=== PATIENT | female | born 1960 | race Caucasian/White ===

== ENCOUNTER 2019-02-20 15:15 | Observation (INO) | payer BC ==
[2019-02-20 15:30] VITALS: BMI 51.2
[2019-02-20] MEDS ORDERED: ALPRAZolam 0.25 MG TABLET PO ONE (16:15)
--- NOTE | 2019-02-20 16:15 | PDOC ---
Documentation entered by Michael Baez SCRIBE, acting as scribe for Jory Cisneros MD. Jory Cisneros MD: This documentation has been prepared by the Nestor spain Xhesika, SCRIBE, under my direction and personally reviewed by me in its entirety. I confirm that the documentation accurately reflects all work, treatment, procedures, and medical decision making performed by me. History of Present Illness - General Chief Complaint: Palpitations Stated Complaint: PALPITAIONS Time Seen by Provider: 02/20/19 15:25 History Source: Patient Exam Limitations: No Limitations - History of Present Illness Initial Comments: 02/20/19 16:05 The patient is a 58 year old female with a significant past medical history of hypothyroidism who presents to the ED with 2 weeks of palpitations. Patient notes her symptoms occur intermittently/ periodically, described as a tense feeling or a fluttering sensation, associated with a "foggy" headache, lasting for roughly 10 minutes (last episode was 2 hrs ago). Patient notes she is going through family stresses, her sister was recently diagnosed with cancer and she endorses these symptoms only when she visits her ill sister who was recently hospitalized.. Patient denies taking any pain medication. Patient notes she saw her PCP in August and her results/ EKG were unremarkable. Denies fever, chills, Pt denies any recent weight loss/weight gain. Denies vision changes/ hearing changes, chest pain, SOB, dizziness, weakness, N, V, abdominal pain, bladder and bowel problems, leg tingling/swelling. Allergies: None Past Medical History: as documented in EMR/HPI Social history: No tobacco. Social drinker Surgical history: hysterectomy, tonsillectomy Meds: as documented in EMR Family history: noncontributory PMD: Dr. Jaimee Woo 02/20/19 16:12 Past History - Past Medical History Allergies/Adverse Reactions: Allergies Allergy/AdvReac Type Severity Reaction Status Date / Time No Known Allergies Allergy Verified 02/20/19 15:18 Home Medications: Ambulatory Orders Levothyroxine [Synthroid] 100 mcg PO DAILY 04/05/12 COPD: No Thyroid Disease: Yes (HYPOTHYROIDISM) - Suicide/Smoking/Psychosocial Hx Smoking Status: No Smoking History: Never smoked Have you smoked in the past 12 months: No Number of Cigarettes Smoked Daily: 0 Information on smoking cessation initiated: No Hx Alcohol Use: No Drug/Substance Use Hx: No Review of Systems - Review of Systems Able to Perform ROS?: Yes Comments:: 02/20/19 16:06 Constitutional: no fevers or chills. No weakness HEENT: (+) headache. +dizziness. No congestion. No visual/hearing disturbances. CVS: no cp or syncope. No edema. (+) palpitations Resp: no sob. No cough. Gastrointestinal: no abdominal pain, nausea or vomiting. Genitourinary: no urinary sx, hematuria. MUSCULOSKELETAL: No joint pain and swelling. No neck or back pain. SKIN: no redness or skin changes, no discharge, no rash. No wounds. Hematologic: no easy bruising/bleeding. NEUROLOGIC: No headache, dizziness, LOC or altered mental status. No weakness, numbness or tingling. Psych: no anxiety or depression Allergic/Immunologic: no allergies All other systems reviewed and negative, or as documented in HPI. 02/20/19 16:13 *Physical Exam - Vital Signs Last Vital Signs Temp Pulse Resp BP Pulse Ox 98.6 F 71 20 143/99 100 02/20/19 15:17 02/20/19 17:56 02/20/19 17:56 02/20/19 17:56 02/20/19 17:56 - Physical Exam Comments: 02/20/19 16:06 General: awake and alert, mildly anxious. HEENT: NCAT, PERRL, EOMI, clear conjunctiva, anicteric, moist mucus membranes, clear oropharynx, no oral lesions.. Neck: neck supple, FROM Resp: CTAB, normal and even respirations, no respiratory distress CVS: RRR, no murmurs, 2+ peripheral pulses throughout, no peripheral edema Abdomen: soft, NTND, no rebound or guarding. No CVAT. Back: nontender, normal inspection and ROM MSK: no edema, SIMPSON x4, ROM intact. No clubbing or cyanosis. normal bulk and tone. Extremities: no calf tenderness Neuro: alert, oriented appropriately; no focal neurologic deficits Psych: cooperative, +anxious, +tearful Skin: warm and well perfused, cap refill <2 sec, normal color 02/20/19 16:14 Heart Score/ECG Review - History History: Slightly suspicious - Electrocardiogram EKG: Normal - Age Age: 45-65 - Risk Factors Risk Factors Heart Score: Yes Hx Obesity Based on the list above the patient has:: 1-2 risk factors - Troponin Troponin: </= normal limit - Score Heart Score - Total: 2 #1 ECG reviewed & interpreted by me at: 15:50 General ECG Interpretation: Sinus Rhythm, Normal Rate, Normal Intervals Compared to previous ECG there are: No significant change 02/20/19 16:18 EKG normal sinus rhythm at 66 bpm, no interval abnormalities, narrow QRS, ST and T wave segments and morphology normal. Nonspecific T wave abnormalities with TWI in III only - infrequent PAC #2 ECG reviewed & interpreted by me at: 17:55 General ECG Interpretation: Sinus Rhythm, Normal Rate, Normal Intervals Compared to previous ECG there are: No significant change ED Treatment Course - LABORATORY CBC & Chemistry Diagram: 02/20/19 16:35 02/20/19 16:35 - ADDITIONAL ORDERS Additional order review: Laboratory Results 02/20/19 02/20/19 02/20/19 16:35 16:35 16:35 Sodium 139 Potassium 4.4 Chloride 105 Carbon Dioxide 26 Anion Gap 8 BUN 16.0 Creatinine 0.6 Est GFR (CKD-EPI)AfAm 117.27 Est GFR (CKD-EPI)NonAf 101.18 Random Glucose 95 Calcium 9.4 Magnesium 1.8 Total Bilirubin 0.8 AST 17 ALT 15 Alkaline Phosphatase 50 Creatine Kinase 47 Troponin I < 0.03 Total Protein 7.1 Albumin 4.1 TSH 2.92 02/20/19 16:35 RBC 4.30 MCV 91.4 MCHC 33.8 RDW 13.4 MPV 8.4 Neutrophils % 76.6 Lymphocytes % 11.7 Monocytes % 8.9 Eosinophils % 2.0 Basophils % 0.8 - RADIOLOGY Radiology Studies Ordered: Category Date Time Status CHEST X-RAY PORTABLE* [RAD] Stat Radiology 02/20/19 17:31 Completed - Medications Given in the ED: ED Medications Discontinued Medications Generic Name Dose Route Start Last Admin Trade Name Freq PRN Reason Stop Dose Admin Alprazolam 0.5 mg 02/20/19 16:15 02/20/19 17:07 Xanax - PO 02/20/19 16:16 0.5 mg ONCE ONE Administration Medical Decision Making - Medical Decision Making 02/20/19 16:14 See HPI for details. Prior notes reviewed, including admissions, discharges and consultations. Vital signs reviewed, wnl. Vital Signs Temp Pulse Resp BP Pulse Ox 98.6 F 69 20 158/86 99 02/20/19 15:17 02/20/19 15:17 02/20/19 15:17 02/20/19 15:17 02/20/19 15:17 DDx chest pain: ACS, coronary vasospasm, NSTEMI, arrhythmia, unstable angina, PE , dissection, PUD, esophageal spasm, GERD, gastritis, costochondritis, pneumonia , pleurisy, pericarditis/myocarditis. dehydration, electrolyte/metabolic derangements. hyperthyroid state. reentrant tachycardia, dysrhythmia. doubt infection, no respiratory or cardiac sx currently. laboratory results and imaging reviewed, basic labs and lytes wnl, TSH unremarkable Cardiac panel_negative, so doubt ACS. more concern for arrhythmia EKG normal sinus rhythm at 66 bpm, no interval abnormalities, narrow QRS, ST and T wave segments and morphology normal. Nonspecific T wave abnormalities with TWI in III only - infrequent PAC similar to prior EKG ED course -interventions: xanax, reassess. 02/20/19 17:28 - while in the ED, had periods of palpitations. tele monitor noticed periods of sinus tachycardia, sinus rhythm with P waves seen, no depressions or elevations, rate up to 150-160s, regular rhythm, no AF/Afib episodes or irregularities. self resolves in <5 seconds, <10 beats. then self resolves to NSR 60-80s no QRS widening to suggest NSVT. no cp or sob. no acute distress during episodes. repeated EKG with sinus rhythm at 70 bpm, no elevations or depressions of ST segments. PAC appearance as before. now with periods of tachycardia, send off for d dimer screening, coags, check for possibility of PE concern for arrhythmia vs reentrant tachycardia cards cs with Dr Simmons mental health consultant admit to telemetry for further monitoring, medical management. s/o MIRACLE Jack with case. 02/20/19 17:47 02/20/19 17:51 02/20/19 18:35 02/20/19 18:37 *DC/Admit/Observation/Transfer Diagnosis at time of Disposition: Palpitations - Discharge Dispostion Condition at time of disposition: Guarded Decision to Admit order: Yes Decision to Admit order Date/Time: Decision to Admit Order Category Date Time Status Decision to Admit to Hospital Routine Admission 02/20/19 17:50 Active Decision to Admit to Hospital Routine Admission 02/20/19 18:21 Active - Referrals - Patient Instructions - Post Discharge Activity
[2019-02-20] MEDS ORDERED: ALPRAZolam 0.25 MG TABLET ONE (17:00)
[2019-02-20 17:02] LABS: BASO % 0.8 % (0-2.0); HEMATOCRIT 39.3 % (32.4-45.2); HEMOGLOBIN 13.3 GM/dl (10.7-15.3); LYMPH % 11.7 % (8-40); MCH 30.9 pg (25.7-33.7); MCHC 33.8 g/dl (32.0-36.0); MEAN CELL VOLUME 91.4 fl (80-96); MEAN PLT VOLUME 8.4 fl (7.5-11.1); MONO % 8.9 % (3.8-10.2); NEUT % 76.6 % (42.8-82.8); PLATELET COUNT 249 K/MM3 (134-434); RDW 13.4 % (11.6-15.6); WHITE BLOOD COUNT 4.3 K/mm3 (4.0-10.8)
[2019-02-20 17:05] LABS: ALBUMIN 4.1 g/dl (3.4-5.0); BILIRUBIN,TOTAL 0.8 mg/dl (0.2-1); CALCIUM 9.4 mg/dl (8.5-10); CREATININE 0.6 mg/dl (0.55-1.3); MAGNESIUM 1.8 mg/dL (1.8-2.4); POTASSIUM 4.4 mmol/L (3.5-5.1); TOT PROT 7.1 g/dl (6.4-8.2)
--- NOTE | 2019-02-20 18:07 | HP ---
CHIEF COMPLAINT: Palpitations x 2 weeks PCP: Olivia Villanueva HISTORY OF PRESENT ILLNESS The patient is a 58 year-old female with a PMH significant for hypothyroidism and sarcoidosis. Presented to the ED today for evaluation of palpitations. Patient began experiencing palpitations about 2 weeks ago. She describes them as a fluttering sensation, sometimes accompanied by a feeling of being flushed and hot, although she denies diaphoresis or clamminess. Patient denies dizziness , lightheadedness, headache, chest pain, SOB, HENDRICKSON, orthopnea, and lower extremity edema. The onset of the palpitations coincided with her sister being diagnosed with multiple myeloma. Patient lost another sister and a brother to cancer, and her mother is 95 with advanced dementia. All of this placing patient under severe emotional distress. Patient has an annual ECG, had an echo a few years ago which was unremarkable, and has never had a stress test. ER course was notable for: (1) HR 59-->178 on monitor, symptomatic (2) Mg 1.8 (3) troponin neg x 1 (4) alprazolam 0.5mg x 1 Recent Travel: No PAST MEDICAL HISTORY: Hypothyroidism Sarcoidosis PAST SURGICAL HISTORY: Left popliteal cyst I&D [place] Social History: Smoking: former Alcohol: occasional Drugs: no Family history: sister 60 with multiple myleloma; brother cancer; sister cancer; mother 95 with Alzheimers Allergies No Known Allergies Allergy (Verified 02/20/19 15:18) HOME MEDICATIONS: Home Medications Medication Instructions Recorded Levothyroxine [Synthroid] 100 mcg PO DAILY 04/05/12 REVIEW OF SYSTEMS CONSTITUTIONAL: Absent: fever, chills, diaphoresis, generalized weakness, malaise, loss of appetite, weight change HEENT: Absent: rhinorrhea, nasal congestion, throat pain, throat swelling, difficulty swallowing, mouth swelling, ear pain, eye pain, visual changes CARDIOVASCULAR: +palpitations Absent: chest pain, syncope, irregular heart rate, lightheadedness, peripheral edema RESPIRATORY: Absent: cough, shortness of breath, dyspnea with exertion, orthopnea, wheezing, stridor, hemoptysis GASTROINTESTINAL: Absent: abdominal pain, abdominal distension, nausea, vomiting, diarrhea, constipation, melena, hematochezia GENITOURINARY: Absent: dysuria, frequency, urgency, hesitancy, hematuria, flank pain, genital pain MUSCULOSKELETAL: Absent: myalgia, arthralgia, joint swelling, back pain, neck pain SKIN: Absent: rash, itching, pallor HEMATOLOGIC/IMMUNOLOGIC: Absent: easy bleeding, easy bruising, lymphadenopathy, frequent infections ENDOCRINE: Absent: unexplained weight gain, unexplained weight loss, heat intolerance, cold intolerance NEUROLOGIC: Absent: headache, focal weakness or paresthesias, dizziness, unsteady gait, seizure, mental status changes, bladder or bowel incontinence PSYCHIATRIC: ++anxiety Absent: depression, suicidal or homicidal ideation, hallucinations. PHYSICAL EXAMINATION Vital Signs - 24 hr 02/20/19 15:17 Temperature 98.6 F Pulse Rate 69 Respiratory 20 Rate Blood Pressure 158/86 O2 Sat by Pulse 99 Oximetry (%) GENERAL: Awake, alert, and fully oriented, in moderate stress due to anxiety LUNGS: Breath sounds equal, clear to auscultation bilaterally. No wheezes, and no crackles. No accessory muscle use. HEART: Regular rate and rhythm, S1 and S2 ABDOMEN: Soft, nontender, not distended MUSCULOSKELETAL: Normal range of motion at all joints. No bony deformities or tenderness. No CVA tenderness. UPPER EXTREMITIES: 2+ pulses, warm, well-perfused. No cyanosis. No clubbing. No peripheral edema. LOWER EXTREMITIES: 2+ pulses, warm, well-perfused. No calf tenderness. No peripheral edema. NEUROLOGICAL: Cranial nerves II-XII intact. Normal speech. Laboratory Results - last 24 hr 02/20/19 02/20/19 02/20/19 16:35 16:35 16:35 WBC 4.3 RBC 4.30 Hgb 13.3 Hct 39.3 MCV 91.4 MCH 30.9 MCHC 33.8 RDW 13.4 Plt Count 249 MPV 8.4 Absolute Neuts (auto) 3.3 Neutrophils % 76.6 Lymphocytes % 11.7 Monocytes % 8.9 Eosinophils % 2.0 Basophils % 0.8 Sodium 139 Potassium 4.4 Chloride 105 Carbon Dioxide 26 Anion Gap 8 BUN 16.0 Creatinine 0.6 Est GFR (CKD-EPI)AfAm 117.27 Est GFR (CKD-EPI)NonAf 101.18 Random Glucose 95 Calcium 9.4 Magnesium 1.8 Total Bilirubin 0.8 AST 17 ALT 15 Alkaline Phosphatase 50 Creatine Kinase Troponin I < 0.03 Total Protein 7.1 Albumin 4.1 02/20/19 16:35 WBC RBC Hgb Hct MCV MCH MCHC RDW Plt Count MPV Absolute Neuts (auto) Neutrophils % Lymphocytes % Monocytes % Eosinophils % Basophils % Sodium Potassium Chloride Carbon Dioxide Anion Gap BUN Creatinine Est GFR (CKD-EPI)AfAm Est GFR (CKD-EPI)NonAf Random Glucose Calcium Magnesium Total Bilirubin AST ALT Alkaline Phosphatase Creatine Kinase 47 Troponin I Total Protein Albumin ASSESSMENT/PLAN 58 year-old female with a PMH significant for hypothyroidism and sarcoidosis. Placed on observation for palpitations. Paroxysmal atrial tachycardia --in sinus rhythm with frequent HR to 150s-->170s; over a 20- minute period with patient, each time the HR spiked, she experienced palpitations; BP remains stable --TSH, free T4 wnl --troponin neg x 1, two pending --d-dimer negative --discussed with Dr. Simmons, start metoprolol 25 mg BID --ASA 325mg x 1 --Ativan IVP 1mg x 1 --Mg IV 2mg x 1 --telemetry monitoring --serial ECGs --echo in am --cardiology to follow Hypothyroidism --continue levothyroxine Sarcoid --lung involvement, diagnosed years ago --stable, not on meds Anxiety --situational to family illnesses --consider starting anti-anxiolytics FEN Fluids: PO intake adequate Electrolytes: replete as indicated Nutrition: regular diet DVT prophylaxis: subq lovenox Dispo: transfer to [facility] telemetry unit. Full code. Visit type - Emergency Visit Emergency Visit: Yes Care time: The patient presented to the Emergency Department on the above date and was hospitalized for further evaluation of their emergent condition. - New Patient This patient is new to me today: Yes Date on this admission: 02/20/19 - Critical Care Critical Care patient: No
[2019-02-20] MEDS ORDERED: MAGNESIUM SULF 50% (8.12 MEQ/2 ML-1 GM VIAL) IVPB ONE (18:21)
[2019-02-20 18:39] LABS: INR 1.16 (0.82-1.09); PROTHROMBIN TIME (PATIENT) 12.9 SEC (10.2-13.0)
[2019-02-20] MEDS ORDERED: METOPROLOL TARTRATE 25 MG TABLET (FP) PO ONE (19:10)
[2019-02-20] MEDS ORDERED: METOPROLOL TARTRATE 50 MG TABLET (FP) ONE ×2 (19:40→20:06)
[2019-02-20] MEDS ORDERED: METOPROLOL TARTRATE 50 MG TABLET (FP) PO STA (20:00)
[2019-02-20] MEDS ORDERED: LORazepam 2 MG/ML SDV VIAL IVPUSH ONE (20:00)
[2019-02-20] MEDS ORDERED: ASPIRIN 81 MG CHEWABLE TABLETS PO ONE (20:02)
[2019-02-20] MEDS ORDERED: ENOXAPARIN NA (PORCINE) 60 MG/0.6 ML DISP.SYRIN SQ ONE (20:06)
[2019-02-20] MEDS ORDERED: LORazepam 2 MG/ML SDV VIAL ONE (20:06)
[2019-02-20] MEDS ORDERED: MAGNESIUM 1GM/D5W - 2 GM/200 ML IVPB IVPB ONE (20:07)
[2019-02-20] MEDS: ENOXAPARIN NA (PORCINE) 40 MG/0.4 ML DISP.SYRIN SQ SCH (20:28)
[2019-02-21] MEDS ORDERED: LEVOTHYROXINE NA 100 MCG TABLET (FP) PO SCH (06:00)
--- NOTE | 2019-02-21 06:53 | PN ---
Progress Note (short form) - Note Progress Note: Chief Complaint: Events noted, notes reviewed, palpitations described as rapid heartbeat with associated "lightheadedness/fogginess", denied any chest discomfort, denied any dyspnea History of Present Illness: Seen and examined on telemetry. Full consult dictated Monitor revealed recurrent paroxysmal supraventricular tachycardia, cannot exclude paroxysmal atrial flutter Medications: Current Medications Aspirin (Ecotrin -) 81 mg PO DAILY [facility] Enoxaparin Sodium (Lovenox -) 40 mg SQ DAILY [facility] Last Admin: 02/20/19 20:28 Dose: 40 mg Levothyroxine Sodium (Synthroid -) 100 mcg PO DAILY@0600 [facility] Last Admin: 02/21/19 06:45 Dose: 100 mcg Metoprolol Tartrate (Lopressor -) 25 mg PO BID [facility] Review of Systems - Review of Systems Constitutional: no symptoms reported Respiratory: denies: Cough or Sputum Production Cardiovascular: as noted above Gastrointestinal: denies: Nausea, Vomiting, Diarrhea, Constipation or Abdominal Pain Genitourinary: no symptoms reported Musculoskeletal: no symptoms reported Endocrine: Hypothyroidism Vital Signs: Last Vital Signs Temp Pulse Resp BP Pulse Ox 98.2 F 48 L 18 141/61 100 02/21/19 06:11 02/21/19 06:11 02/21/19 06:11 02/21/19 06:11 02/20/19 20:40 Intake & Output 02/18/19 02/19/19 02/20/19 02/21/19 23:59 23:59 23:59 23:59 Intake Total 200 Balance 200 Weight 280 lb Constitutional: No Distress, Calm Neck: Supple Negative JVD No Bruit Respiratory: Clear to auscultation percussion Cardiovascular: S1 S2 Regular Rate and Rhythm Garde 2/6 NASIR Gastrointestinal: Soft Benign Normal Bowel Sounds Ext: No Edema Labs: Troponin, BNP 02/20/19 02/21/19 16:35 05:57 Troponin I < 0.03 < 0.02 CBC, BMP 02/21/19 05:57 02/21/19 05:57 Hepatic Panel Total Bilirubin 0.7 mg/dL (0.2-1) 02/21/19 05:57 AST 14 U/L (15-37) L 02/21/19 05:57 ALT 19 U/L (13-61) 02/21/19 05:57 Alkaline Phosphatase 54 U/L (45-117) 02/21/19 05:57 Albumin 3.6 g/dl (3.4-5.0) 02/21/19 05:57 INR, PTT INR 1.09 (0.83-1.09) 02/21/19 05:57 Assessment/Plan ASSESSMENT: 1. Palpitations referable to paroxysmal supraventricular tachycardia (as noted on monitor), nonsustained cannot exclude paroxysmal atrial flutter 2. Structural heart disease to be excluded considering the above-noted presentation and history of pulmonary sarcoidosis, exclude myocardial sarcoidosis 3. Heart murmur most likely related to aortic valve sclerosis with no clinical evidence of aortic valve stenosis 4. Pulmonary sarcoidosis- not biopsy proven 5. Hypothyroidism 6. Morbid obesity PLAN: 1. Continue Lopressor therapy and further dose titration as needed, hemodynamics permitting 2. Continue daily Ecotrin therapy 3. Echocardiography for evaluation of left ventricular systolic function and the above-noted heart murmur 4. Patient was strongly counseled dietary compliance including caloric restriction, increase ambulation as tolerated and weight reduction 5. Additional cardiovascular evaluation to be performed on outpatient basis including myocardial perfusion imaging study and cardiac MRI to exclude myocardial sarcoidosis, discussed in detail with patient and advised office followup 6. Provided patient is ambulating without any recurrent sustained arrhythmia patient can be discharged home later today Gina Perez M.D.
[2019-02-21 08:37] LABS: ALBUMIN 3.6 g/dl (3.4-5.0); ALK PHOS 54 U/L (45-117); ANION GAP 7 MMOL/L (8-16); BILIRUBIN,TOTAL 0.7 mg/dL (0.2-1); BLOOD UREA NITROGEN 14.3 mg/dL (7-18); CALCIUM 8.9 mg/dL (8.5-10.1); CHLORIDE 106 mmol/L (98-107); CO2 29 mmol/L (21-32); CREATININE 0.5 mg/dL (0.55-1.3); GLUCOSE,RANDOM 79 mg/dL (74-106); MAGNESIUM 2.4 mg/dL (1.8-2.4); POTASSIUM 4.1 mmol/L (3.5-5.1); SGOT/AST 14 U/L (15-37); SGPT/ALT 19 U/L (13-61); SODIUM 141 mmol/L (136-145); TOT PROT 6.7 g/dl (6.4-8.2)
[2019-02-21 08:41] LABS: ACTIVATED PTT 33.9 SECONDS (25.2-36.5); INR 1.09 (0.83-1.09); PROTHROMBIN TIME (PATIENT) 12.9 SEC (9.7-13.0)
[2019-02-21 08:55] LABS: BASO % 1.1 % (0-2.0); EOS % 3.8 % (0-4.5); HEMATOCRIT 37.5 % (32.4-45.2); HEMOGLOBIN 12.7 GM/dL (10.7-15.3); LYMPH % 23.9 % (8-40); MCH 30.5 pg (25.7-33.7); MCHC 33.8 g/dl (32.0-36.0); MEAN CELL VOLUME 90.4 fl (80-96); MEAN PLT VOLUME 8.3 fl (7.5-11.1); MONO % 11.7 % (3.8-10.2); NEUT % 59.5 % (42.8-82.8); PLATELET COUNT 225 K/MM3 (134-434); RBC 4.14 M/mm3 (3.60-5.2); RDW 14.6 % (11.6-15.6)
[2019-02-21] MEDS ORDERED: METOPROLOL TARTRATE 25 MG TABLET (FP) PO SCH (10:00)
[2019-02-21] MEDS ORDERED: ASPIRIN COATED 81 MG TABLET.EC PO SCH (10:00)
[2019-02-21] MEDS: ENOXAPARIN NA (PORCINE) 40 MG/0.4 ML DISP.SYRIN SQ SCH (10:48)
--- NOTE | 2019-02-21 10:54 | ECHO ---
Version: 1 Name: VANGIE MERAZ Exam: Adult Echocardiogram Study Date: 02/21/2019, 8:43 AM Age: 58 Years MMode/2D Measurements & Calculations IVSd: 0.91 cm LVIDs: 3.4 cm LVIDd: 4.7 cm LVPWd: 0.85 cm LVOT diam: 2.01 cm Ao root diam: 2.6 cm LA dimension: 3.2 cm Doppler Measurements & Calculations MV E max dalton: 83.9 cm/sec Med E/e': 8.8 MV A max dalton: 97.6 cm/sec Med Peak E' Dalton: 9.5 cm/sec MV E/A: 0.86 Lat E/e': 5.5 Lat Peak E' Dalton: 15.2 cm/sec Ao max P.8 mmHg MAYE(I,D): 1.53 cm Ao mean P.9 mmHg LV V1 mean: 61.9 cm/sec Ao V2 max: 211.1 cm/sec LV V1 mean P.70 mmHg TR max dalton: 227.1 cm/sec TR max P.7 mmHg Left Ventricle The left ventricular size, thickness and function are normal. Ejection Fraction = 65%. Right Ventricle The right ventricle is normal in size and function. Atria Normal left and right atrial size and function. Mitral Valve There is mild mitral valve thickening. There is trace mitral regurgitation. Tricuspid Valve The tricuspid valve is normal. There is trace tricuspid regurgitation. Aortic Valve There is mild aortic valve thickening. Pulmonic Valve The pulmonic valve is not well visualized. Great Vessels The aortic root is normal size. Normal aortic arch, descending and ascending aorta. Pericardium/Pleura There is no pericardial effusion. Summary Statements The left ventricular size, thickness and function are normal Ejection Fraction = 65%. The right ventricle is normal in size and function. Normal left and right atrial size and function. There is mild mitral valve thickening. There is trace mitral regurgitation. The tricuspid valve is normal. There is trace tricuspid regurgitation. There is mild aortic valve thickening. The pulmonic valve is not well visualized. The aortic root is normal size. Normal aortic arch, descending and ascending aorta There is no pericardial effusion. Joselito Niremberg 02/21/2019, 9:54 AM Ordering Physician: Sunitha Jack Referring Physician: MAIA MARTINEZ Performed By: Shakira Ford
--- NOTE | 2019-02-21 11:01 | EKG ---
Test Reason : Blood Pressure : / mmHG Vent. Rate : 066 BPM Atrial Rate : 066 BPM P-R Int : 188 ms QRS Dur : 114 ms QT Int : 386 ms P-R-T Axes : 051 039 008 degrees QTc Int : 404 ms SINUS RHYTHM WITH PREMATURE ATRIAL COMPLEXES WITH ABERRANT CONDUCTION OTHERWISE NORMAL ECG NO PREVIOUS ECGS AVAILABLE Confirmed by Stan Vega ([id number]) on 02/21/2019 11:00:38 AM Referred By: Confirmed By:Stan Vega
--- NOTE | 2019-02-21 11:03 | EKG ---
Test Reason : Blood Pressure : / mmHG Vent. Rate : 070 BPM Atrial Rate : 070 BPM P-R Int : 194 ms QRS Dur : 108 ms QT Int : 398 ms P-R-T Axes : 052 018 003 degrees QTc Int : 429 ms SINUS RHYTHM WITH PREMATURE ATRIAL COMPLEXES WITH ABERRANT CONDUCTION T WAVE ABNORMALITY, CONSIDER INFERIOR ISCHEMIA ABNORMAL ECG WHEN COMPARED WITH ECG OF 20-FEB-2019 15:47, NO SIGNIFICANT CHANGE WAS FOUND Confirmed by Stan Vega ([id number]) on 02/21/2019 11:03:37 AM Referred By: Confirmed By:Stan Vega
[2019-02-21] MEDS ORDERED: CITALOPRAM HYDROBROMIDE 10 MG TABLET (FP) PO SCH (12:00)
--- NOTE | 2019-02-21 13:17 | CONS ---
DATE OF CONSULTATION: 02/21/2019 REQUESTING PHYSICIAN: Hospitalist service. CHIEF COMPLAINT: Palpitations, evaluation of supraventricular tachycardia. 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 Palpations were described as rapid heartbeat. Symptoms worsened on the day of evaluation. Patient reported associated vague lightheadedness described as head fogginess. Patient denied any near syncope or syncope. Patient reports dyspnea with moderate physical exertion, which she attributes to the above-noted pulmonary sarcoidosis. Patient denies any orthopnea, paroxysmal or nocturnal dyspnea, or peripheral edema. Patient denies any chest discomfort. Patient denies any fatigue or tiredness. Patient has been reporting significant emotional stress related to personal issues. PAST MEDICAL HISTORY: Pulmonary sarcoidosis not biopsy proven, hypothyroidism. PAST SURGICAL HISTORY: Hysterectomy. SOCIAL HISTORY: Remote history of tobacco abuse. FAMILY HISTORY: Positive for coronary artery disease. ALLERGIES: None reported. MEDICAL THERAPY: Currently includes Ecotrin 81 mg once a day, Lovenox 40 mg subcutaneously once a day, Synthroid 100 mcg once a day, Lopressor 25 mg twice a day. REVIEW OF SYSTEMS: Head and Neck: Denies headache, photophobia, blurring of vision. Respiratory: No cough or sputum production. Cardiovascular: As noted above. Gastrointestinal: Denies nausea, vomiting, diarrhea, abdominal discomfort. Genitourinary: No symptoms reported. Musculoskeletal: No symptoms reported. Endocrine: History of hypothyroidism. PHYSICAL EXAMINATION: Vital Signs: Blood pressure is 141/61 mmHg, pulse rate is 48 beats per minute, temperature 98.2, weight 280 pounds. Head and Neck: Pupils equal and reactive to light and accommodation. Extraocular muscles are intact. Anicteric sclerae. Negative JVD. No bruits appreciated. Chest: Clear to auscultation and percussion. Cardiovascular: S1, S2 regular. Grade 2/6 systolic ejection murmur. No clicks or gallops. Abdomen: Soft, benign. Normoactive bowel sounds. Extremities: Negative edema. Intact distal pulses. No calf tenderness. Electrocardiogram reveals sinus rhythm with nonspecific T-wave abnormality. CPK, troponin I levels were noted. CBC revealed white cell count 3.0, hemoglobin 12.7, platelet count 225. Basic metabolic profile revealed sodium 141, potassium 4.1, BUN 14.3, creatinine 0.5, glucose 79 with normal liver profile. Monitor revealed evidence of nonsustained supraventricular tachycardia. Cannot exclude paroxysmal atrial flutter. ASSESSMENT: 1. Palpitations referable to paroxysmal supraventricular tachycardia, nonsustained. Cannot exclude paroxysmal atrial flutter. 2. Structural heart disease to be excluded considering the above-noted presentation and history of pulmonary sarcoidosis. Exclude myocardial sarcoidosis. 3. Heart murmur most likely related to aortic valve sclerosis with no clinical evidence of aortic valve stenosis. 4. History of pulmonary sarcoidosis not biopsy proven. 5. Hypothyroidism. 6. Morbid obesity. RECOMMENDATION: 1. Continuation of Lopressor therapy and further titration of dosage as needed hemodynamics permitting. 2. Continuation of daily Ecotrin therapy. 3. Echocardiography for evaluation of left ventricular systolic function and the above-noted heart murmur. 4. Additional cardiovascular evaluation to be performed on outpatient basis including myocardial perfusion imaging study and cardiac MRI, which is to exclude myocardial sarcoidosis. Above was discussed in detail with the patient and advised office follow up. 5. Patient was strongly counseled dietary compliance including caloric restriction, increase ambulation as tolerated, and weight reduction. 6. Provided patient is ambulating without any recurrent sustained arrhythmia, she can be discharged home later today. Thank you for kind referral. LG HASTINGS M.D. [id number]
--- NOTE | 2019-02-21 15:09 | PN ---
Physical Exam: SUBJECTIVE: Patient seen and examined OBJECTIVE: Vital Signs Period Temp Pulse Resp BP Sys/Amaya Pulse Ox Last 24 Hr 97.9 F-98.6 F 48-71 14-20 138-159/61-99 99-100 GENERAL: The patient is awake, alert, and fully oriented, in no acute distress. HEAD: Normal with no signs of trauma. EYES: PERRL, extraocular movements intact, sclera anicteric, conjunctiva clear. No ptosis. ENT: Ears normal, nares patent, oropharynx clear without exudates, moist mucous membranes. NECK: Trachea midline, full range of motion, supple. LUNGS: Breath sounds equal, clear to auscultation bilaterally, no wheezes, no crackles, no accessory muscle use. HEART: Regular rate and rhythm, S1, S2 without murmur, rub or gallop. ABDOMEN: Soft, nontender, nondistended, normoactive bowel sounds, no guarding, no rebound, no hepatosplenomegaly, no masses. EXTREMITIES: 2+ pulses, warm, well-perfused, no edema. NEUROLOGICAL: Cranial nerves II through XII grossly intact. Normal speech, gait not observed. PSYCH: Normal mood, normal affect. SKIN: Warm, dry, normal turgor, no rashes or lesions noted Laboratory Results - last 24 hr 02/20/19 02/20/19 02/20/19 16:35 16:35 16:35 WBC 4.3 RBC 4.30 Hgb 13.3 Hct 39.3 MCV 91.4 MCH 30.9 MCHC 33.8 RDW 13.4 Plt Count 249 MPV 8.4 Absolute Neuts (auto) 3.3 Neutrophils % 76.6 Lymphocytes % 11.7 Monocytes % 8.9 Eosinophils % 2.0 Basophils % 0.8 Nucleated RBC % PT with INR INR PTT (Actin FS) D-Dimer Sodium 139 Potassium 4.4 Chloride 105 Carbon Dioxide 26 Anion Gap 8 BUN 16.0 Creatinine 0.6 Est GFR (CKD-EPI)AfAm 117.27 Est GFR (CKD-EPI)NonAf 101.18 Random Glucose 95 Calcium 9.4 Magnesium 1.8 Total Bilirubin 0.8 AST 17 ALT 15 Alkaline Phosphatase 50 Creatine Kinase Troponin I < 0.03 Total Protein 7.1 Albumin 4.1 TSH Free T4 02/20/19 02/20/19 02/20/19 16:35 16:35 18:15 WBC RBC Hgb Hct MCV MCH MCHC RDW Plt Count MPV Absolute Neuts (auto) Neutrophils % Lymphocytes % Monocytes % Eosinophils % Basophils % Nucleated RBC % PT with INR INR PTT (Actin FS) D-Dimer < 215 Sodium Potassium Chloride Carbon Dioxide Anion Gap BUN Creatinine Est GFR (CKD-EPI)AfAm Est GFR (CKD-EPI)NonAf Random Glucose Calcium Magnesium Total Bilirubin AST ALT Alkaline Phosphatase Creatine Kinase 47 Troponin I Total Protein Albumin TSH 2.92 Free T4 1.28 Cancelled 02/20/19 02/21/19 02/21/19 18:15 05:57 05:57 WBC 3.0 L RBC 4.14 Hgb 12.7 Hct 37.5 MCV 90.4 MCH 30.5 MCHC 33.8 RDW 14.6 Plt Count 225 MPV 8.3 Absolute Neuts (auto) 1.8 Neutrophils % 59.5 Lymphocytes % 23.9 Monocytes % 11.7 H Eosinophils % 3.8 Basophils % 1.1 Nucleated RBC % 0 PT with INR 12.9 12.90 INR 1.16 1.09 PTT (Actin FS) 33.9 D-Dimer Sodium Potassium Chloride Carbon Dioxide Anion Gap BUN Creatinine Est GFR (CKD-EPI)AfAm Est GFR (CKD-EPI)NonAf Random Glucose Calcium Magnesium Total Bilirubin AST ALT Alkaline Phosphatase Creatine Kinase Troponin I Total Protein Albumin TSH Free T4 02/21/19 05:57 WBC RBC Hgb Hct MCV MCH MCHC RDW Plt Count MPV Absolute Neuts (auto) Neutrophils % Lymphocytes % Monocytes % Eosinophils % Basophils % Nucleated RBC % PT with INR INR PTT (Actin FS) D-Dimer Sodium 141 Potassium 4.1 Chloride 106 Carbon Dioxide 29 Anion Gap 7 L BUN 14.3 Creatinine 0.5 L Est GFR (CKD-EPI)AfAm 124.52 Est GFR (CKD-EPI)NonAf 107.44 Random Glucose 79 Calcium 8.9 Magnesium 2.4 Total Bilirubin 0.7 AST 14 L ALT 19 Alkaline Phosphatase 54 Creatine Kinase Troponin I < 0.02 Total Protein 6.7 Albumin 3.6 TSH Free T4 Active Medications Generic Name Dose Route Start Last Admin Trade Name Freq PRN Reason Stop Dose Admin Aspirin 81 mg 02/21/19 10:00 02/21/19 10:48 Ecotrin - PO 81 mg DAILY RAMON Administration Citalopram Hydrobromide 5 mg 02/21/19 12:00 02/21/19 12:41 Celexa - PO 5 mg DAILY RAMON Administration Enoxaparin Sodium 40 mg 02/20/19 18:45 02/21/19 10:48 Lovenox - SQ 40 mg DAILY RAMON Administration Levothyroxine Sodium 100 mcg 02/21/19 06:00 02/21/19 06:45 Synthroid - PO 100 mcg DAILY@0600 RAMON Administration Metoprolol Tartrate 25 mg 02/21/19 10:00 02/21/19 10:48 Lopressor - PO 25 mg BID RAMON Administration ASSESSMENT/PLAN: Visit type - Emergency Visit Emergency Visit: Yes ED Registration Date: 02/20/19 Care time: The patient presented to the Emergency Department on the above date and was hospitalized for further evaluation of their emergent condition. - New Patient This patient is new to me today: Yes Date on this admission: 02/21/19 - Critical Care Critical Care patient: No - Discharge Referral Referred to [facility] Med P.C.: No ATTENDING PHYSICIAN STATEMENT I saw and evaluated the patient. I reviewed the resident's note and discussed the case with the resident. I agree with the resident's findings and plan as documented. SUBJECTIVE: OBJECTIVE: ASSESSMENT AND PLAN:
[2019-02-21 15:34] VITALS: BP 135/65; PULSE 57; TEMP 98.2
--- NOTE | 2019-02-21 17:17 | PN ---
Teaching Attending Note Name of Resident: Catalina Jackson ATTENDING PHYSICIAN STATEMENT I saw and evaluated the patient. I reviewed the resident's note and discussed the case with the resident. I agree with the resident's findings and plan as documented. SUBJECTIVE: no palpitations last night, or today. no cp or SOB OBJECTIVE: NAD Cv : RRR, nno murmurs are heard Lungs: CTAB ext : No edema ,no erythema abd: obese, soft, NT, ND , NL BS ASSESSMENT AND PLAN: 58 y/o lady with h/o hypothyroidism and sarcoidosis, and lots of life stresses who presented with palpitations 1- Palpitations: likley sinsu tachycardia in setting of emotional stress. TSH NL , EKG with sinus arrhythmias. echo reviewed. - cont BB - cotn ASA - add celexa at 10 mg and dose could be increased as outpt . patietn was instructed not to stop abruptly and that it needs to be tapered over weeks - out pt eval fro arrhythmias, cardiac sarcoidosis, and ischemia 2- Hypothyroidism : cont synthroid dc home
--- NOTE | 2019-02-21 17:20 | DS ---
Physical Exam: SUBJECTIVE: Patient seen and examined OBJECTIVE: Vital Signs Period Temp Pulse Resp BP Sys/Amaya Pulse Ox Last 24 Hr 97.9 F-98.6 F 48-71 14-20 135-159/61-99 99-100 PHYSICAL EXAM GENERAL: The patient is awake, alert, and fully oriented, in no acute distress. HEAD: Normal with no signs of trauma. EYES: PERRL, extraocular movements intact, sclera anicteric, conjunctiva clear. ENT: Ears normal, nares patent, oropharynx clear without exudates, moist mucous membranes. NECK: Trachea midline, full range of motion, supple. LUNGS: Breath sounds equal, clear to auscultation bilaterally, no wheezes, no crackles, no accessory muscle use. HEART: Regular rate and rhythm, S1, S2 without murmur, rub or gallop. ABDOMEN: Soft, nontender, nondistended, normoactive bowel sounds, no guarding, no rebound, no hepatosplenomegaly, no masses. EXTREMITIES: 2+ pulses, warm, well-perfused, no edema. NEUROLOGICAL: Cranial nerves II through XII grossly intact. Normal speech, gait not observed. PSYCH: Normal mood, normal affect. SKIN: Warm, dry, normal turgor, no rashes or lesions noted. LABS Laboratory Results - last 24 hr 02/20/19 02/20/19 02/20/19 16:35 16:35 16:35 WBC RBC Hgb Hct MCV MCH MCHC RDW Plt Count MPV Absolute Neuts (auto) Neutrophils % Lymphocytes % Monocytes % Eosinophils % Basophils % Nucleated RBC % PT with INR INR PTT (Actin FS) D-Dimer Sodium Potassium Chloride Carbon Dioxide Anion Gap BUN Creatinine Est GFR (CKD-EPI)AfAm Est GFR (CKD-EPI)NonAf Random Glucose Calcium Magnesium Total Bilirubin AST ALT Alkaline Phosphatase Creatine Kinase 47 Troponin I < 0.03 Total Protein Albumin TSH 2.92 Free T4 1.28 Cancelled 02/20/19 02/20/19 02/21/19 18:15 18:15 05:57 WBC 3.0 L RBC 4.14 Hgb 12.7 Hct 37.5 MCV 90.4 MCH 30.5 MCHC 33.8 RDW 14.6 Plt Count 225 MPV 8.3 Absolute Neuts (auto) 1.8 Neutrophils % 59.5 Lymphocytes % 23.9 Monocytes % 11.7 H Eosinophils % 3.8 Basophils % 1.1 Nucleated RBC % 0 PT with INR 12.9 INR 1.16 PTT (Actin FS) D-Dimer < 215 Sodium Potassium Chloride Carbon Dioxide Anion Gap BUN Creatinine Est GFR (CKD-EPI)AfAm Est GFR (CKD-EPI)NonAf Random Glucose Calcium Magnesium Total Bilirubin AST ALT Alkaline Phosphatase Creatine Kinase Troponin I Total Protein Albumin TSH Free T4 02/21/19 02/21/19 05:57 05:57 WBC RBC Hgb Hct MCV MCH MCHC RDW Plt Count MPV Absolute Neuts (auto) Neutrophils % Lymphocytes % Monocytes % Eosinophils % Basophils % Nucleated RBC % PT with INR 12.90 INR 1.09 PTT (Actin FS) 33.9 D-Dimer Sodium 141 Potassium 4.1 Chloride 106 Carbon Dioxide 29 Anion Gap 7 L BUN 14.3 Creatinine 0.5 L Est GFR (CKD-EPI)AfAm 124.52 Est GFR (CKD-EPI)NonAf 107.44 Random Glucose 79 Calcium 8.9 Magnesium 2.4 Total Bilirubin 0.7 AST 14 L ALT 19 Alkaline Phosphatase 54 Creatine Kinase Troponin I < 0.02 Total Protein 6.7 Albumin 3.6 TSH Free T4 HOSPITAL COURSE: Date of Admission:02/20/19 Date of Discharge: 02/21/19 Minutes to complete discharge: 40 Discharge Summary Reason For Visit: PALPITATIONS Condition: Improved - Instructions Diet, Activity, Other Instructions: You were in the hospital because you were having heart palpitations , While in the hospital you had cardiac monitoring done which showed that you had some heart beats with a normal rhythm but they were too fast. You were also seen by a senior net developer architect who recommended that you have further evaluation as an outpatient as you have sarcoidosis and it is possible that your palpations can be related. We are sending you home with a prescription for Celexa as it is also possible your symptoms are related to anxiety during a stressful period in your life. Please discuss this medication with your primary care doctor, you may decide to continue, discontinue, or change the dose of this medicine with his help. Please continue your home medications as persebed with the following changes: - ADD Celexa 10mg once per day - add lopressore - add aspirin Please follow up with the following doctors within 1 week of discharge from the hospital - Dr. Ariel Gonzalez, your primary care doctor, to discuss your celexa prescription - Dr. Perez, to follow up with further tests to evaluate the cause of your heart palpitations If you have worsening heart palpitations, shortness of breath, or chest pains, please return to the Emergency Department immediately. Referrals: Ariel Gonzalez MD [Non Staff, Medical] - 1 Week Gina Perez MD [Staff Physician] - 1 Week - Home Medications Comprehensive Discharge Medication List: Ambulatory Orders Levothyroxine [Synthroid -] 100 mcg PO DAILY 04/05/12 Aspirin [ASA -] 81 mg PO DAILY #30 tab.chew 02/21/19 Citalopram Hydrobromide [Celexa -] 10 mg PO DAILY #30 tablet 02/21/19 Metoprolol Tartrate [Lopressor -] 25 mg PO BID #60 tablet 02/21/19 This patient is new to me today: Yes Date on this admission: 02/21/19 Emergency Visit: Yes ED Registration Date: 02/20/19 Care time: The patient presented to the Emergency Department on the above date and was hospitalized for further evaluation of their emergent condition. Critical Care patient: No - Discharge Referral Referred to [facility] Med P.C.: No ATTENDING PHYSICIAN STATEMENT I saw and evaluated the patient. I reviewed the resident's note and discussed the case with the resident. I agree with the resident's findings and plan as documented. SUBJECTIVE: OBJECTIVE: ASSESSMENT AND PLAN:
== END 2019-02-21 18:58 | disposition home or self-care (01) ==
LOC: FER 15:15 → FM/S 18:21 → UNDOADMIN 18:21 → J4W 18:29 → INTOOBSV 02-21 → UNDOADMOB 02-21 → J4W 02-21
PROVIDERS: ADMIT Internal Medicine; ATTEND Internal Medicine
PROC: 3E033GC Introduction of Other Therapeutic Substance into Peripheral Vein, Percutaneous Approach (ICD-10-PCS; principal; 2019-02-20)
PROC: 3E013GC Introduction of Other Therapeutic Substance into Subcutaneous Tissue, Percutaneous Approach (ICD-10-PCS; 2019-02-20)
DX: I47.9 Paroxysmal tachycardia, unspecified (principal); R01.1 Cardiac murmur, unspecified; E03.9 Hypothyroidism, unspecified; D86.0 Sarcoidosis of lung; F41.9 Anxiety disorder, unspecified; E66.01 Morbid (severe) obesity due to excess calories; Z68.43 Body mass index [BMI] 50.0-59.9, adult
CPT/HCPCS: 36415; 71045-TC-FY; 80053; 82550; 83735; 84439; 84443; 84481; 84484; 85025; 85379; 85610; 85730; 93005; 93306-TC; 99285-25; G0378